=== PATIENT | male | born 2000 | race Asian ===

== ENCOUNTER 2024-07-18 11:22 | Emergency (ER) | payer OTHER ==
[2024-07-18] MEDS: Orphenadrine 60 MG/2 ML Inj IM ONE (12:12)
[2024-07-18] MEDS: Ketorolac 30 MG/ML SDV IM ONE (12:13)
[2024-07-18] MEDS: Lidocaine 4% 1 each Patch TOP STA (12:13)
== END 2024-07-18 13:18 | disposition home or self-care (01) ==
LOC: MW.ED 11:22
DX: S13.4XXA Sprain of ligaments of cervical spine, initial encounter (principal); Z75.8 Other problems related to medical facilities and other health care; V69.9XXA Occupant (driver) (passenger) of heavy transport vehicle injured in unspecified traffic accident, initial encounter
CPT/HCPCS: 73030; 96372; 99284; A9270; J1885; J2360